=== PATIENT | male | born 1965 | race Hispanic/Latino ===

== ENCOUNTER 2023-09-01 21:56 | Emergency (ER) | payer OTHER ==
[~2023-09-01] VITALS: Ht 167.6 cm; Wt 84.4 kg
[2023-09-02] MEDS ORDERED: TETANUS/DIPHTHERIA TOXOID [ADULT] 0.5 ML VIAL IM ONE
[2023-09-02] MEDS ORDERED: IBUPROFEN 600 MG TABLET PO ONE
[2023-09-02] MEDS ORDERED: CEFAZOLIN SODIUM 1 GM VIAL IM SCH
[2023-09-02 00:46] VITALS: BP 128/70; PULSE 84; RESP 18; O2SAT 98
== END 2023-09-02 00:53 | disposition home or self-care (01) ==
LOC: EDH 21:56
DX: S61.431A Puncture wound without foreign body of right hand, initial encounter (principal); I10 Essential (primary) hypertension; X58.XXXA Exposure to other specified factors, initial encounter; Y93.89 Activity, other specified; Y92.89 Other specified places as the place of occurrence of the external cause; Y99.8 Other external cause status
CPT/HCPCS: 99284; 73120; 90714; 96372; 90471; J0690